=== PATIENT | male | born 1955 | race Caucasian/White ===

== ENCOUNTER 2024-02-09 07:01 | Outpatient (CLI) | payer OTHER ==
[~2024-02-09 07:01] MED LIST: [UNRECOGNIZED DRUG - REMARK]
[2024-02-09 08:31] LABS: URINE APPEARANCE Cloudy; URINE BILIRRUBIN Negative (NEGATIVE); URINE BLOOD Negative; URINE COLOR Yellow; URINE GLUCOSE Negative (NEGATIVE); URINE KETONE Negative (NEGATIVE); URINE LEUKOCYTE Trace; URINE NITRATE Negative; URINE PROTEIN Negative (NEGATIVE); URINE UROBILINOGEN 0.2 E.U./dl
[2024-02-09 08:36] LABS: URINE BACTERIA 13.8 uL (0.0-1933); URINE RBC 2.4 uL (0.0-20.8)
[2024-02-09 08:53] LABS: CALCIUM 9.2 mg/dL (8.5-10.1); CHOL HDL RATIO 3.7 (0-5.0); CREATININE SERUM 0.93 mg/dL (0.70-1.30); GFR 81.29; POTASSIUM 4.14 mEq/L (3.5-5.1); PROSTATIC SPECIFIC ANTIGEN 1.18 NG/ML (0.010-4.00); TSH 3.34 uIU/mL (0.358-3.74)
[2024-02-09 08:56] LABS: URINE EPITHELIAL CELLS 0.9 uL (0.0-38.8); URINE WBC 1.6 uL (0.0-23.2)
[2024-02-11 18:10] LABS: hcv q HCV Not Detected IU/mL (.)
== END 2024-02-09 07:09 | disposition home or self-care (01) ==
LOC: LAB 07:01
DX: E21.3 Hyperparathyroidism, unspecified (principal); E78.5 Hyperlipidemia, unspecified; R80.8 Other proteinuria; N39.0 Urinary tract infection, site not specified; R19.5 Other fecal abnormalities; E03.9 Hypothyroidism, unspecified; E55.9 Vitamin D deficiency, unspecified; E11.65 Type 2 diabetes mellitus with hyperglycemia; N40.1 Benign prostatic hyperplasia with lower urinary tract symptoms; I10 Essential (primary) hypertension; B18.1 Chronic viral hepatitis B without delta-agent

== ENCOUNTER → 2024-02-11 07:03 | Outpatient (CLI) | payer OTHER ==
[2024-02-11 08:56] LABS: ob NEGATIVE (NEGATIVE)
== END | disposition home or self-care (01) ==
LOC: LAB 07:03
DX: E21.3 Hyperparathyroidism, unspecified (principal); E78.5 Hyperlipidemia, unspecified; R80.8 Other proteinuria; N39.0 Urinary tract infection, site not specified; R19.5 Other fecal abnormalities; E03.9 Hypothyroidism, unspecified; E55.9 Vitamin D deficiency, unspecified; E11.65 Type 2 diabetes mellitus with hyperglycemia

== ENCOUNTER 2024-05-27 13:50 | Outpatient (CLI) | payer OTHER | END 2024-05-27 13:52 | disposition home or self-care (01) | LOC: MRI 13:50 | PROVIDERS: ATTEND Neuromusculoskeletal Medicine, Sports Medicine | DX: R29.810 Facial weakness (principal) | CPT/HCPCS: 70551 ==

== ENCOUNTER 2024-06-16 07:25 | Outpatient (CLI) | payer OTHER ==
[2024-06-16 08:01] LABS: ABG PH 7.436 (7.35-7.45); ABG PO2 80.2 mmHg (80-100); ABG pCO2 42.8 mmHg (35-45); BASE EXCESS 3.4 mmol/l; BICARBONATE 28.1 mmol/l (23-25); SaO2 96.3 %; Tco2 29.4 mmol/l
[2024-06-16 08:02] LABS: allen test SATISFACTORY; o2 21 %; puncture site RADIAL LEFT
[2024-06-16 08:31] LABS: HEMATOCRIT 46.4 % (39.0-48.0); HEMOGLOBIN 15.8 g/dL (13-16.00); MEAN CELL VOLUME 88.5 fL (80.0-100.00); MEAN CORPUSCULAR HEMOGLOBIN 30.1 pg (27.00-32.0); PLATELET COUNT 174 K/uL (150-450); RED BLOOD COUNT 5.24 M/uL (4.00-6.00); RED CELL DISTRIBUTION WIDTH 14.9 % (11.5-14.5)
[2024-06-16 09:17] LABS: ALBUMIN 4.2 gm/dL (3.4-5.0); BILIRUBIN TOTAL 0.69 mg/dL (0.3-1.2); CALCIUM 9.8 mg/dL (8.5-10.1); CREATININE SERUM 0.96 mg/dL (0.70-1.30); GFR 78.37; GLOBULINA 3.5 G/DL (2.4-3.5); POTASSIUM 4.43 mEq/L (3.5-5.1); TOTAL PROTEIN 7.7 gm/dL (6.4-8.2)
== END 2024-06-16 07:26 | disposition home or self-care (01) ==
LOC: LAB 07:25
PROVIDERS: ATTEND Neuromusculoskeletal Medicine, Sports Medicine
DX: B18.1 Chronic viral hepatitis B without delta-agent (principal); G51.0 Bell's palsy